=== PATIENT | female | born 1995 | race Hispanic/Latino ===

== ENCOUNTER 2020-05-23 19:26 | Emergency (ER) | payer OTHER ==
[~2020-05-23] VITALS: Ht 160 cm; Wt 72.1 kg
[2020-05-23] MEDS ORDERED: AZITHROMYCIN 250 MG TAB PO STA (21:28)
[2020-05-23] MEDS ORDERED: CEFTRIAXONE SOD 1 GM VIAL IV ONE (21:30)
[2020-05-23] MEDS ORDERED: FLAGYL500 MG PO (21:35)
[2020-05-23] MEDS ORDERED: FAMCICLOVIR500 MG PO (21:35)
[2020-05-23] MEDS ORDERED: AZITHROMYCIN 250 MG TAB ONE (21:55)
[2020-05-23] MEDS ORDERED: CEFTRIAXONE SOD 1 GM/NS 50 ML 50 ML IV ONE (21:56)
[2020-05-23 22:50] VITALS: BP 130/70
== END 2020-05-23 22:50 | disposition home or self-care (01) ==
LOC: FSED 20:22
DX: R10.30 Lower abdominal pain, unspecified (principal); N39.0 Urinary tract infection, site not specified; F17.210 Nicotine dependence, cigarettes, uncomplicated
CPT/HCPCS: 80053; 81003; 81025; 85025; 96365; 99283; J0696